=== PATIENT | female | born 1995 | race Caucasian/White ===

== ENCOUNTER 2017-08-30 01:08 | Emergency (ER) | payer SELFPAY ==
[2017-08-30] MEDS ORDERED: LIDOCAINE 1%/EPINEPHRINE INJ 20 ML VIAL INJ ONE (02:33)
[2017-08-30] MEDS ORDERED: AMOXICILLIN TRIHYDRATE 500 MG CAPSULE PO ONE (02:34)
[2017-08-30] MEDS ORDERED: AMOXICILLIN TR/POT CLAVULANATE 500-125 MG TAB PO ONE (02:34)
--- NOTE | 2017-08-30 02:36 | ER Document Report ---
ED Animal Bite - General Chief Complaint: Dog Bite L forearm Stated Complaint: POSSIBLE DOG BITE Time Seen by Provider: 08/30/17 02:18 Notes: Patient is a 22-year-old female that comes emergency department for chief complaint of dog bites to her left forearm. She states that it was her personal dog, vaccinated, and it attacked her when she messed with its food tray. She states that she has made the decision to let the dog go because it is not the first time it has attacked somebody. She denies any daily medications. LMP within the past month. Her tetanus is not up-to-date. TRAVEL OUTSIDE OF THE [place] IN LAST 30 DAYS: No - Related Data Allergies/Adverse Reactions: No Known Allergies Allergy (Unverified 08/30/17 01:12) Past Medical History - General Information source: Patient - Social History Smoking Status: Never Smoker Chew tobacco use (# tins/day): No Frequency of alcohol use: None Drug Abuse: None Lives with: Family Family History: Reviewed & Not Pertinent Patient has suicidal ideation: No Patient has homicidal ideation: No - Medical History Medical History: Negative Renal/ Medical History: Denies: Hx Peritoneal Dialysis Surgical Hx: Negative - Immunizations Immunizations up to date: No Hx Diphtheria, Pertussis, Tetanus Vaccination: Yes Review of Systems - Review of Systems Constitutional: No symptoms reported EENT: No symptoms reported Cardiovascular: No symptoms reported Respiratory: No symptoms reported Gastrointestinal: No symptoms reported Genitourinary: No symptoms reported Female Genitourinary: No symptoms reported Musculoskeletal: See HPI Skin: See HPI Hematologic/Lymphatic: No symptoms reported Neurological/Psychological: No symptoms reported Physical Exam - Vital signs Vitals: Temp Pulse Resp BP Pulse Ox 98.9 F 116 H 18 128/76 H 99 08/30/17 01:18 08/30/17 01:18 08/30/17 01:18 08/30/17 01:18 08/30/17 01:18 Interpretation: Normal - General General appearance: Appears well In distress: None - HEENT Head: Normocephalic, Atraumatic Eyes: Normal Pupils: PERRL - Respiratory Respiratory status: No respiratory distress Chest status: Nontender Breath sounds: Normal Chest palpation: Normal - Cardiovascular Rhythm: Regular Heart sounds: Normal auscultation Murmur: No - Abdominal Inspection: Normal Distension: No distension Bowel sounds: Normal Tenderness: Nontender Organomegaly: No organomegaly - Back Back: Normal, Nontender - Extremities General upper extremity: Other - Multiple lacerations over the flexor surface of the left forearm, there is a 1 cm long laceration that is slightly wide and bleeding significantly, there is also a 2 cm laceration that is irregular and also wide. There is a 1 cm laceration over the volar wrist which is horizontal but also applied. Volar partial thickness. Normal elbow, wrist, hand exam. Multiple small abrasions in addition to lacerations. No bony tenderness or soft tissue swelling General lower extremity: Normal inspection, Nontender, Normal strength, Normal temperature - Neurological Neuro grossly intact: Yes Cognition: Normal Orientation: AAOx4 [place] Coma Scale Eye Opening: Spontaneous Sam Coma Scale Verbal: Oriented Sam Coma Scale Motor: Obeys Commands Sam Coma Scale Total: 15 Speech: Normal Motor strength normal: LUE, RUE, LLE, RLE Sensory: Normal - Psychological Associated symptoms: Normal affect. No: Normal mood - Patient pleasant and interactive but appears to have recently been crying - Skin Skin Temperature: Warm Skin Moisture: Dry Skin Color: Normal Course - Re-evaluation Re-evalutation: There are 3 lacerations of the left forearm that needed to be approximated, this was done after they were thoroughly cleaned. No deep wounds or evidence of tendon or nerve injury. Normal upper extremity function. Approximations were performed but no full closure was placed to allow drainage and reduce risk of infection. No bony tenderness or soft tissue swelling suggesting fracture. Tetanus updated, giving antibiotics. Discussed wound care, follow-up, return precautions. Patient states understanding and agreement. - Vital Signs Vital signs: Temp Pulse Resp BP Pulse Ox 98.9 F 88 20 112/59 L 98 08/30/17 01:18 08/30/17 03:38 08/30/17 03:38 08/30/17 03:38 08/30/17 03:38 Procedures - Laceration/Wound Repair Left wrist Wound length (cm): 1 Wound's Depth, Shape: Linear Laceration pre-procedure: Sterile PPE donned, Sterile drapes applied, Shur- Clens applied Anesthetic type: 1% Lidocaine w/epi Volume Anesthetic (mLs): 2 Wound explored: Clean, No foreign body removed Irrigated w/ Saline (mLs): 30 Wound Repaired With: Sutures Suture Size/Type: 4:0, Nylon Number of Sutures: 2 Layer Closure?: No Post-procedure NV exam normal: Yes Complications: No left forearm1 Wound length (cm): 1 Wound's Depth, Shape: Irregular Laceration pre-procedure: Sterile PPE donned, Sterile drapes applied, Shur- Clens applied Anesthetic type: 1% Lidocaine w/epi Volume Anesthetic (mLs): 1 Wound explored: Clean, No foreign body removed Irrigated w/ Saline (mLs): 30 Wound Repaired With: Sutures Suture Size/Type: 4:0, Nylon Number of Sutures: 1 Layer Closure?: No Post-procedure NV exam normal: Yes Complications: No left forearm 2 Wound length (cm): 2 Wound's Depth, Shape: Irregular Laceration pre-procedure: Sterile PPE donned, Sterile drapes applied, Shur- Clens applied Anesthetic type: 1% Lidocaine w/epi Volume Anesthetic (mLs): 2 Wound explored: Clean, No foreign body removed Irrigated w/ Saline (mLs): 30 Wound Repaired With: Sutures Suture Size/Type: 4:0, Nylon Number of Sutures: 2 Layer Closure?: No Post-procedure NV exam normal: Yes Complications: No Discharge - Discharge Clinical Impression: Dog bite Qualifiers: Encounter type: initial encounter Qualified Code(s): W54.0XXA - Bitten by dog, initial encounter Arm laceration Qualifiers: Encounter type: initial encounter Laterality: left Qualified Code(s): S41.112A - Laceration without foreign body of left upper arm, initial encounter Condition: Stable Disposition: HOME, SELF-CARE Instructions: Tetanus Immunization Given ([facility]) Additional Instructions: Sutures need to come out in 1 week. Keep clean, clean with soap and water, dab dry, avoid soaking. You can apply thin film of topical antibiotic over the scratches and lacerations. Take Augmentin antibiotic as prescribed. I recommend probiotic source to avoid diarrhea. Return immediately if you worsen including spreading redness, discolored drainage, fever of 100.4 or greater, or any other concerning symptoms. Prescriptions: Amox Tr/Potassium Clavulanate [Augmentin 875-125 Tablet] 1 tab PO BID 7 Days tablet
[2017-08-30] MEDS ORDERED: ONDANSETRON 4 MG TAB.RAPDIS ONE (03:11)
[2017-08-30] MEDS ORDERED: ONDANSETRON 4 MG TAB.RAPDIS PO ONE (03:15)
[2017-08-30] MEDS ORDERED: DIPH/PERTUSS(ACELL)/TETANUS VAC/PF 0.5 ML SYR (>=10YO) IM ONE (03:15)
[2017-08-30 03:39] VITALS: BP 112/59
== END 2017-08-30 03:38 | disposition home or self-care (01) ==
LOC: ER 01:08
DX: S51.852A Open bite of left forearm, initial encounter (principal); S61.552A Open bite of left wrist, initial encounter; W54.0XXA Bitten by dog, initial encounter; S41.112A Laceration without foreign body of left upper arm, initial encounter; Y93.89 Activity, other specified; Z23 Encounter for immunization
CPT/HCPCS: 99283; 90471; 90715; 12002; S0119; J3490

== ENCOUNTER 2018-06-16 20:17 | Emergency (ER) | payer SELFPAY ==
[2018-06-16 20:28] VITALS: BP 146/80
[2018-06-16] MEDS ORDERED: FAMOTIDINE 20 MG TABLET PO ONE (21:57)
[2018-06-16] MEDS ORDERED: PREDNISONE 20 MG TABLET PO ONE (21:57)
[2018-06-16] MEDS ORDERED: DIPHENHYDRAMINE HCL 50 MG CAPSULE PO ONE (21:57)
--- NOTE | 2018-06-16 22:03 | ER Document Report ---
ED Skin Rash/Insect Bite/Abscs - General Chief Complaint: Hives Stated Complaint: FACIAL RASH Time Seen by Provider: 06/16/18 21:47 Mode of Arrival: Ambulatory Information source: Patient Notes: 23-year-old female presented to ED for rash to the face neck times 3 days. Patient states she does not know of any new exposures of anything except for that her dog sleeps on her bed. She states she knows that the dog came up alcohol on her bed about 3 days ago and she has had the rash since then. She states it seems to get worse at night when she lays in the bed. She does have a vesicular type rash to the face and neck in the pattern of poison kaye. Patient states that her dog does go outside and sleep on her bed. TRAVEL OUTSIDE OF THE [place] IN LAST 30 DAYS: No - HPI Patient complains to provider of: Skin rash/lesion Onset: Other - 3 days Onset/Duration: Persistent Quality of pain: No pain Severity: None Pain Level: Denies Skin Character: Rash Quality of rash: Itchy Identify cause: No Exacerbated by: Other - Seems to be worse after she sleeps in her bed Relieved by: Denies Similar symptoms previously: Yes Recently seen / treated by doctor: No - Related Data Allergies/Adverse Reactions: No Known Allergies Allergy (Unverified 08/30/17 01:12) Past Medical History - General Information source: Patient - Social History Smoking Status: Never Smoker Cigarette use (# per day): No Chew tobacco use (# tins/day): No Smoking Education Provided: No Frequency of alcohol use: None Drug Abuse: None Occupation: Cook Lives with: Spouse/Significant other Family History: Reviewed & Not Pertinent Patient has suicidal ideation: No Patient has homicidal ideation: No - Past Medical History Cardiac Medical History: Reports: None Pulmonary Medical History: Reports: None EENT Medical History: Reports: None Neurological Medical History: Reports: None Endocrine Medical History: Reports: None Renal/ Medical History: Reports: None Malignancy Medical History: Reports: None GI Medical History: Reports: None Musculoskeletal Medical History: Reports None Skin Medical History: Reports None Psychiatric Medical History: Reports: None Traumatic Medical History: Reports: None Infectious Medical History: Reports: None Surgical Hx: Negative Past Surgical History: Reports: None - Immunizations Immunizations up to date: No Hx Diphtheria, Pertussis, Tetanus Vaccination: Yes Review of Systems - Review of Systems Notes: REVIEW OF SYSTEMS: CONSTITUTIONAL : Denies fever, chills, or sweats. Denies recent illness. EENT: Denies eye, ear, throat, or mouth pain or symptoms. Denies nasal or sinus congestion or discharge. Denies throat, tongue, or mouth swelling or difficulty swallowing. CARDIOVASCULAR: Denies chest pain. Denies palpitations or racing or irregular heart beat. Denies ankle edema. RESPIRATORY: Denies cough, cold, or chest congestion. Denies shortness of breath, difficulty breathing, or wheezing. GASTROINTESTINAL: Denies abdominal pain or distention. Denies nausea, vomiting , or diarrhea. Denies blood in vomitus, stools, or per rectum. Denies black, tarry stools. Denies constipation. GENITOURINARY: Denies difficulty urinating, painful urination, burning, frequency, blood in urine, or discharge. FEMALE GENITOURINARY: Denies vaginal bleeding, heavy or abnormal periods, irregular periods. Denies vaginal discharge or odor. MUSCULOSKELETAL: Denies back or neck pain or stiffness. Denies joint pain or swelling. SKIN: Vesicular rash to bilateral sides of her face neck. Patient and significant other states there is no rash anywhere else. Patient denies any pain she states that it is just very itchy. HEMATOLOGIC : Denies easy bruising or bleeding. LYMPHATIC: Denies swollen, enlarged glands. NEUROLOGICAL: Denies confusion or altered mental status. Denies passing out or loss of consciousness. Denies dizziness or lightheadedness. Denies headache. Denies weakness or paralysis or loss of use of either side. Denies problems with gait or speech. Denies sensory loss, numbness, or tingling. Denies seizures. PHYSICAL EXAMINATION: GENERAL: Well-appearing, well-nourished and in no acute distress. HEAD: Atraumatic, normocephalic. Vesicular patchy rash to face and neck EYES: Pupils equal round and reactive to light, extraocular movements intact, conjunctiva are normal. ENT: Nares patent, oropharynx clear without exudates. Moist mucous membranes. NECK: Normal range of motion, supple without lymphadenopathy LUNGS: Breath sounds clear to auscultation bilaterally and equal. No wheezes rales or rhonchi. HEART: Regular rate and rhythm without murmurs ABDOMEN: Soft, nontender, nondistended abdomen. No guarding, no rebound. No masses appreciated. Female : deferred Musculoskeletal: Normal range of motion, no pitting or edema. No cyanosis. NEUROLOGICAL: Cranial nerves grossly intact. Normal speech, normal gait. Normal sensory, motor exams PSYCH: Normal mood, normal affect. SKIN: Warm, Dry, normal turgor. Patient has a vesicular rash with a red base to the face and neck and this pattern of poison kaye. No rash anywhere except for the face and neck. Clear fluid to the vesicles. PSYCHIATRIC: Denies anxiety or stress. Denies depression, suicidal ideation, or homicidal ideation. ALL OTHER SYSTEMS REVIEWED AND NEGATIVE. Dictation was performed using [employer] voice recognition software Physical Exam - Vital signs Vitals: Temp Pulse Resp BP Pulse Ox 97.9 F 95 15 146/80 H 100 06/16/18 20:26 06/16/18 20:26 06/16/18 20:26 06/16/18 20:26 06/16/18 20:26 Course - Vital Signs Vital signs: Temp Pulse Resp BP Pulse Ox 98.1 F 82 18 146/80 H 100 06/16/18 22:46 06/16/18 22:46 06/16/18 22:46 06/16/18 20:26 06/16/18 22:46 Discharge - Discharge Clinical Impression: Rash and nonspecific skin eruption Condition: Stable Disposition: HOME, SELF-CARE Additional Instructions: Poison Kaye Poison kaye and poison oak can cause an itchy rash. This is called contact dermatitis. It's an allergy to an oil in the plant's leaves. The oil can be spread from clothing to skin, from pets to humans, or from one spot on the body to another. Washing thoroughly with soap immediately after exposure can prevent the rash. (Clothing should be washed as well.) If the oil is not removed, an itchy rash develops a few days after the exposure. Blisters may develop. Two to three weeks may be required for healing. Generally, treatment consists of: (1) an immediate thorough washing with soap to remove the oil, (2) application of a cortisone cream, and (3) antihistamines for itching. If the reaction is particularly severe, oral cortisone medicine may be required. If there are oozing areas, these can be soaked in epsom salts or Refugio's solution. Call the doctor if the rash worsens despite treatment, or if signs of infection occur such as spreading redness, red streaks, swollen glands, swelling , or fever. ACUTE ALLERGIC REACTION: Your symptoms are due to an allergic reaction. Allergy can cause hives, swelling of the hands, feet, and face, hoarseness, and difficulty swallowing or breathing. It may be due to exposure to medication, animal dander, foods, infection, or insect bites. Medication is a common cause, even when prior use of this same medication caused no problems. Acute treatment may include adrenalin and antihistamines. Usually, the specific allergic agent can't be identified unless repeated episodes occur. Home treatment includes the following: (1) Stop any suspicious medications. This will be discussed with you. (2) Oral antihistamines for the next four to five days. Example, diphenhydramine (Benadryl) every four hours. (3) You may also use cimetidine (Tagamet), ranitidine (Zantac), or famotidine ( Pepcid) every four hours if diphenhydramine is not controlling itching and hives. (4) Avoid aspirin until the hives completely disappear. (5) Avoid hot baths or showers until the hives are completely gone. Call the doctor if faintness, difficulty swallowing, tightness in the chest , or wheezing occurs. STEROID MEDICATION: You have been given a medicine of the cortisone/steroid class. This medication is used to control inflammation or allergy. It is usually only given for a short period of time, until the acute process subsides. There are usually no side effects from short-term use of cortisone-like medications. Some persons feel an increased sense of well-being and are not sleepy at bedtime. Long-term use of cortisone medications is best avoided, unless required for a severe condition. If your condition does not remit, or relapses after the course of corticosteroid medication, you should consult your physician. ACID-SUPPRESSING MEDICATION: You have a prescription for medicine which reduces the stomach's secretion of acid. Examples include Zantac, Tagament, and Pepcid. These drugs are often used to allow healing of ulcers or esophagitis. They may be needed to prevent recurrence of ulcers in some patients, or to prevent damage from acid reflux in the esophagus. Take all medication as prescribed, even after the pain is gone. Regular antacids may be added as needed if you have symptoms while taking this medicine. These medications sometimes are prescribed for allergic reactions because they have anti-histaminic effects and relieve the rash and itching of the reaction. There are usually no side effects from this medication. But, in rare cases and particularly in the elderly, serious problems can occur. Contact your doctor if there is fever, rash, hallucinations, confusion, or unusual bruising. Contact your doctor at once if you develop lightheadedness, black or bloody stool, or bloody vomitus. USE OF DIPHENHYDRAMINE: The use of diphenhydramine (Benadryl) has been recommended to control allergic symptoms. The 25 mg strength is available over- the-counter, as well as the elixir. This antihistamine is used for many symptoms. It's useful for itching, watering eyes and nose, allergic swelling, hives, and insect stings. The medication can be repeated four times daily. Age Elixir (12.5 mg/tsp) 25 mg pill 2-3 yr 1/2 tsp 4-8 yr 1 tsp 9-14 yr 2 tsp one tab adult 1-2 tabs Antihistamines may cause drowsiness, especially with the first dose. Do not operate machinery or drive while under the effects of the medication. Do not combine the medication with alcohol, or with any other medication without talking to your doctor. Do not scratch the area as this will just make it itch more. Calamine lotion, Benadryl lotion, or Caladryl lotion will decrease the itching. Do not put steroid creams on your face. FOLLOW-UP CARE: If you have been referred to a physician for follow-up care, call the physician s office for an appointment as you were instructed or within the next two days. If you experience worsening or a significant change in your symptoms, notify the physician immediately or return to the Emergency Department at any time for re-evaluation. Prescriptions: Prednisone [Deltasone 20 mg Tablet] 3 tab PO DAILY 2 Days tablet Forms: Elevated Blood Pressure, Return to Work
== END 2018-06-16 22:47 | disposition home or self-care (01) ==
LOC: ER 20:17
DX: R21 Rash and other nonspecific skin eruption (principal)
CPT/HCPCS: 99282; J7512